=== PATIENT | male | born 1975 | race Caucasian/White ===

== ENCOUNTER 2020-07-09 07:14 | Observation (INO) | payer MEDICAID ==
[~2020-07-09] VITALS: Ht 177.8 cm; Wt 72.6 kg
[2020-07-09 07:30] VITALS: BP_SYST 123
[2020-07-09] MEDS ORDERED: NAPR-686 PO (08:42)
[2020-07-09] MEDS ORDERED: SULF1TAB47 PO (08:42)
[2020-07-09 09:48] VITALS: BP_SYST 128
[2020-07-09 12:12] VITALS: BP_SYST 119
[2020-07-09] MEDS ORDERED: LIDOCAINE 1% 10 MG/ML, 20 ML MDV INJ ONE (14:21)
[2020-07-09] MEDS ORDERED: CEFAZOLIN 2 GM IVPB PREMIX 50 ML IV ONE (14:21)
[2020-07-09] MEDS ORDERED: PROPOFOL 200MG/ 20ML VIAL (DIPRIVAN) IV ONE (14:21)
[2020-07-09] MEDS ORDERED: LR 1,000 ML IV.SOLN IV ONE (14:21)
[2020-07-09] MEDS ORDERED: MEPERIDINE 100 MG INJ. 100 MG/ML VIAL IM ONE (14:21)
[2020-07-09] MEDS ORDERED: NS IRRIG SOLN 1000 ML IR ONE (14:21)
[2020-07-09] MEDS ORDERED: WATER FOR IRRIGATION,STERILE 1,000 ML IRRIG.SOLN IR ONE (14:21)
[2020-07-09] MEDS ORDERED: DEXAMETHASONE SOD PHOSPHATE 4 MG/ML VIAL IVP ONE (14:21)
[2020-07-09] MEDS ORDERED: ONDANSETRON HCL 4 MG/2 ML VIAL IVP ONE (14:21)
[2020-07-09] MEDS ORDERED: fentaNYL CITRATE 250 MCG/5 ML AMP IV ONE (14:21)
[2020-07-09] MEDS ORDERED: POLYMYXIN 500,000/BACIT.10,000 UNITS in NS IRR 1 L IR ONE (14:24)
[2020-07-09] MEDS ORDERED: ONDANSETRON HCL 4 MG/2 ML VIAL IVP PRN (16:00)
[2020-07-09] MEDS ORDERED: fentaNYL CITRATE/PF 100 MCG/2 ML AMP IVP PRN ×2 (16:00)
[2020-07-09 16:20] VITALS: BP_SYST 119
[2020-07-09 18:51] VITALS: BP_SYST 110
[2020-07-09 20:00] VITALS: BP_SYST 110
== END 2020-07-09 20:45 | disposition home or self-care (01) ==
LOC: SED 07:14 → SMU 08:57
PROVIDERS: ADMIT Orthopaedic Surgery; ATTEND Orthopaedic Surgery
DX: S82.841A Displaced bimalleolar fracture of right lower leg, initial encounter for closed fracture (principal); Z88.0 Allergy status to penicillin; Z79.899 Other long term (current) drug therapy; V68.4XXA Person boarding or alighting a heavy transport vehicle injured in noncollision transport accident, initial encounter; Y93.89 Activity, other specified; Y92.89 Other specified places as the place of occurrence of the external cause
CPT/HCPCS: 27814; 87081; 99284; C1713 ×5; C1769; G0378; J0690; J1100; J2001; J2175; J2405; J2704; J3010; J7120; 76000